=== PATIENT | male | born 1985 | race Caucasian/White ===

== ENCOUNTER 2022-03-24 13:16 | Emergency (ER) | payer OTHER ==
[2022-03-24 13:22] VITALS: BMI 31.1
[2022-03-24] MEDS ORDERED: SODIUM CHLORIDE 0.9% 500 ML INFUS.BAG IV ONE (13:49)
[2022-03-24] MEDS ORDERED: METOCLOPRAMIDE HCL INJECTION 10 MG/2 ML VIAL ONE (14:04)
[2022-03-24] MEDS ORDERED: METOCLOPRAMIDE HCL INJECTION 10 MG/2 ML VIAL IVPUSH ONE (14:04)
[2022-03-24 14:20] LABS: BASO % 0.4 % (0-2.0); EOS % 0.7 % (0-4.5); HEMATOCRIT 43.3 % (35.4-49); HEMOGLOBIN 14.6 GM/dL (11.7-16.9); LYMPH % 33.4 % (8-40); MCH 29.5 pg (25.7-33.7); MCHC 33.7 g/dl (32.0-35.9); MEAN CELL VOLUME 87.7 fl (80-96); MEAN PLT VOLUME 9.3 fl (7.5-11.1); NEUT % 57.5 % (42.8-82.8); PLATELET COUNT 245 10^3/uL (134-434); RBC 4.94 M/mm3 (4.00-5.60); RDW 13.3 % (11.9-15.9); WHITE BLOOD COUNT 6.7 K/mm3 (4.0-10.0)
[2022-03-24 14:44] LABS: CALCIUM 9.5 mg/dL (8.5-10.1)
[2022-03-24 14:45] LABS: BLOOD UREA NITROGEN 13.8 mg/dL (7-18)
[2022-03-24 14:48] LABS: CREATININE 0.9 mg/dL (0.55-1.3)
[2022-03-24] MEDS ORDERED: MECLIZINE HCL 25 MG TABLET (FP) PO ONE (15:41)
[2022-03-24] MEDS ORDERED: MECLIZINE HCL 25 MG TABLET (FP) ONE (16:28)
[2022-03-24 16:37] VITALS: BP 130/73; PULSE 67; RESP 14; TEMP 98.2
== END 2022-03-24 16:37 | disposition home or self-care (01) ==
LOC: JER 13:16
PROC: 3E033GC Introduction of Other Therapeutic Substance into Peripheral Vein, Percutaneous Approach (ICD-10-PCS; principal; 2022-03-24)
DX: R42 Dizziness and giddiness (principal)
CPT/HCPCS: 36415; 70450-TC; 80048; 85025; 99284-25

== ENCOUNTER 2022-11-26 20:35 | Emergency (ER) | payer OTHER ==
[2022-11-26 20:46] VITALS: BP 119/71; PULSE 97; RESP 18; TEMP 98.2; BMI 32.9
[2022-11-26 21:35] LABS: BASO % 0.4 % (0-2.0); EOS % 0.4 % (0-4.5); HEMATOCRIT 46.9 % (35.4-49); HEMOGLOBIN 16.3 GM/dL (11.7-16.9); LYMPH % 37.7 % (8-40); MCH 29.9 pg (25.7-33.7); MCHC 34.8 g/dl (32.0-35.9); MEAN CELL VOLUME 85.9 fl (80-96); MONO % 10.1 % (3.8-10.2); NEUT % 51.4 % (42.8-82.8); PLATELET COUNT 241 10^3/uL (134-434); RBC 5.46 M/mm3 (4.00-5.60); RDW 13.4 % (11.9-15.9); WHITE BLOOD COUNT 9.3 K/mm3 (4.0-10.0)
[2022-11-26 21:42] LABS: INR 1.16 (0.83-1.09); PROTHROMBIN TIME (PATIENT) 13.4 SEC (9.7-13.0)
[2022-11-26 21:44] LABS: ACTIVATED PTT 31.6 SECONDS (25.2-36.5)
[2022-11-26] MEDS ORDERED: ACETAMINOPHEN 1000 MG/100 ML BAG IVPB ONE (21:52)
[2022-11-26] MEDS ORDERED: ACETAMINOPHEN INJECTION 100 ML IVPB ONE (22:14)
[2022-11-26 22:20] LABS: POTASSIUM 4.5 mmol/L (3.5-5.1)
[2022-11-26 22:27] LABS: CALCIUM 9.7 mg/dL (8.5-10.1)
[2022-11-26 22:28] LABS: ALBUMIN 4.6 g/dl (3.4-5.0); BLOOD UREA NITROGEN 13.8 mg/dL (7-18)
[2022-11-26 22:31] LABS: BILIRUBIN,TOTAL 0.6 mg/dL (0.2-1); CREATININE 1.1 mg/dL (0.55-1.3); TOT PROT 8.9 g/dl (6.4-8.2)
== END 2022-11-26 23:44 | disposition home or self-care (01) ==
LOC: JER 20:35
PROC: 3E033NZ Introduction of Analgesics, Hypnotics, Sedatives into Peripheral Vein, Percutaneous Approach (ICD-10-PCS; principal; 2022-11-26)
DX: R07.89 Other chest pain (principal); R05.9 Cough, unspecified; R04.2 Hemoptysis
CPT/HCPCS: 36415; 71046-TC-FY; 80053; 85025; 85379; 85610; 85730; 99284-25

== ENCOUNTER 2023-09-27 21:58 | Observation (INO) | payer OTHER ==
[2023-09-27 22:44] LABS: BASO % 0.5 % (0-2.0); EOS % 0.5 % (0-4.5); LYMPH % 31.4 % (8-40); MCH 30.2 pg (25.7-33.7); MCHC 34.8 g/dl (32.0-35.9); MEAN CELL VOLUME 86.9 fl (80-96); MEAN PLT VOLUME 9.4 fl (7.5-11.1); MONO % 8.3 % (3.8-10.2); NEUT % 59.3 % (42.8-82.8); PLATELET COUNT 219 10^3/uL (134-434); RBC 4.95 M/mm3 (4.00-5.60); RDW 13.6 % (11.9-15.9); WHITE BLOOD COUNT 9.6 K/mm3 (4.0-10.0)
[2023-09-27] MEDS: SODIUM CHLORIDE 0.9% 500 ML INFUS.BAG IV ONE (22:50)
[2023-09-27 23:08] LABS: POTASSIUM 4.1 mmol/L (3.5-5.1)
[2023-09-27 23:10] LABS: ALBUMIN 4.2 g/dl (3.4-5.0); BLOOD UREA NITROGEN 16.3 mg/dL (7-18); CALCIUM 9.6 mg/dL (8.5-10.1); MAGNESIUM 1.9 mg/dL (1.8-2.4)
[2023-09-27 23:13] LABS: CREATININE 1.3 mg/dL (0.55-1.3)
[2023-09-27 23:15] LABS: BILIRUBIN,TOTAL 0.6 mg/dL (0.2-1); TOT PROT 7.7 g/dl (6.4-8.2)
[2023-09-28] MEDS ORDERED: KETOROLAC TROMETHAMINE 30 MG/1 ML VIAL ONE (00:16)
[2023-09-28] MEDS ORDERED: CYCLOBENZAPRINE HCL 10 MG TABLET (FP) ONE (00:17)
[2023-09-28] MEDS: KETOROLAC TROMETHAMINE 30 MG/1 ML VIAL IVPUSH ONE (00:20)
[2023-09-28] MEDS: CYCLOBENZAPRINE HCL 10 MG TABLET (FP) PO ONE (00:20)
[2023-09-28] MEDS: APIXABAN 5 MG TABLET PO ONE (02:12)
[2023-09-28] MEDS: SODIUM CHLORIDE 1,000 ML IV SCH (02:25)
[2023-09-28] MEDS ORDERED: ACETAMINOPHEN 325 MG TABLET (FP) PO PRN (03:18)
[2023-09-28 06:51] LABS: HEMATOCRIT 38.3 % (35.4-49); HEMOGLOBIN 13.1 GM/dL (11.7-16.9); MCH 30.2 pg (25.7-33.7); MCHC 34.1 g/dl (32.0-35.9); MEAN CELL VOLUME 88.5 fl (80-96); MEAN PLT VOLUME 9.4 fl (7.5-11.1); PLATELET COUNT 175 10^3/uL (134-434); RBC 4.33 M/mm3 (4.00-5.60); RDW 13.3 % (11.9-15.9); WHITE BLOOD COUNT 8.4 K/mm3 (4.0-10.0)
[2023-09-28 07:06] LABS: POTASSIUM 3.8 mmol/L (3.5-5.1)
[2023-09-28 07:08] LABS: BLOOD UREA NITROGEN 17.1 mg/dL (7-18); CALCIUM 8.4 mg/dL (8.5-10.1)
[2023-09-28 07:11] LABS: CREATININE 1.2 mg/dL (0.55-1.3)
[2023-09-28 07:12] LABS: PHOSPHOROUS 3.2 mg/dL (2.5-4.9)
[2023-09-28 07:13] LABS: BILIRUBIN,TOTAL 0.3 mg/dL (0.2-1)
[2023-09-28 07:14] LABS: ALBUMIN 3.2 g/dl (3.4-5.0)
[2023-09-28] MEDS ORDERED: APIXABAN 5 MG TABLET PO SCH (10:00)
[2023-09-28] MEDS ORDERED: APIXABAN 5 MG TABLET ONE (10:10)
[2023-09-28] MEDS: APIXABAN 5 MG TABLET PO SCH (10:14)
[2023-09-28 18:41] VITALS: BMI 32.0
[2023-09-29 10:12] LABS: ACTIVATED PTT 35.4 SECONDS (25.2-36.5)
[2023-09-29 10:15] LABS: BASO % 0.5 % (0-2.0); EOS % 0.7 % (0-4.5); HEMATOCRIT 40.3 % (35.4-49); HEMOGLOBIN 13.5 GM/dL (11.7-16.9); LYMPH % 34.6 % (8-40); MCH 29.8 pg (25.7-33.7); MCHC 33.4 g/dl (32.0-35.9); MEAN CELL VOLUME 89.2 fl (80-96); MEAN PLT VOLUME 9.5 fl (7.5-11.1); MONO % 6.7 % (3.8-10.2); NEUT % 57.5 % (42.8-82.8); PLATELET COUNT 182 10^3/uL (134-434); RBC 4.52 M/mm3 (4.00-5.60); RDW 13.4 % (11.9-15.9); WHITE BLOOD COUNT 6.9 K/mm3 (4.0-10.0)
[2023-09-29 10:59] VITALS: RESP 16
[2023-09-29 11:02] VITALS: BP 114/94; PULSE 50; TEMP 97.5
[2023-09-29 11:06] LABS: INR 1.25 (0.83-1.09); PROTHROMBIN TIME (PATIENT) 14.3 SEC (9.7-13.0)
== END 2023-09-29 11:43 | disposition home or self-care (01) ==
LOC: JERFT 21:58 → UNDOADMOB 09-28 02:16 → INTOOBSV 09-28 02:16 → JERBED 09-28 02:16 → J6S 09-28 18:38
PROVIDERS: ADMIT Internal Medicine; ATTEND Internal Medicine
PROC: 3E0333Z Introduction of Anti-inflammatory into Peripheral Vein, Percutaneous Approach (ICD-10-PCS; principal; 2023-09-28)
PROC: 3E0337Z Introduction of Electrolytic and Water Balance Substance into Peripheral Vein, Percutaneous Approach (ICD-10-PCS; 2023-09-28)
DX: I26.09 Other pulmonary embolism with acute cor pulmonale (principal); R79.89 Other specified abnormal findings of blood chemistry; F12.90 Cannabis use, unspecified, uncomplicated
CPT/HCPCS: 36415; 71275-TC; 75635-TC; 80053; 83735; 84100; 85025; 85027; 85379; 85610; 85730; 93005; 93010; 93971-TC; 96361; 96374; 99285-25; G0378; Q9967

== ENCOUNTER 2024-01-30 10:57 | Emergency (ER) | payer OTHER ==
[2024-01-30 11:10] VITALS: TEMP 97.4; BMI 29.8
[2024-01-30] MEDS ORDERED: ACETAMINOPHEN 325 MG TABLET (FP) ONE (13:10)
[2024-01-30] MEDS: ACETAMINOPHEN 325 MG TABLET (FP) PO ONE (13:14)
[2024-01-30] MEDS ORDERED: LIDOCAINE 4% PATCH TP ONE (15:27)
[2024-01-30] MEDS: LIDOCAINE 4% PATCH TP ONE (15:30)
[2024-01-30 18:33] LABS: POTASSIUM 4.3 mmol/L (3.5-5.1)
[2024-01-30 18:34] LABS: CALCIUM 9.1 mg/dL (8.5-10.1)
[2024-01-30 18:35] LABS: BLOOD UREA NITROGEN 20.1 mg/dL (7-18)
[2024-01-30 18:38] LABS: CREATININE 1.2 mg/dL (0.55-1.3)
[2024-01-30] MEDS ORDERED: LIDOCAINE PATCH REMOVAL MC ONE (22:00)
[2024-01-30 22:11] VITALS: BP 129/77; PULSE 79; RESP 18
== END 2024-01-30 22:11 | disposition home or self-care (01) ==
LOC: JER 10:57
DX: R07.89 Other chest pain (principal)
CPT/HCPCS: 36415; 71046-TC-FY; 71101-TC-RT-FY; 71275-TC; 80048; 99285-25; Q9967